=== PATIENT | female | born 1950 | race Caucasian/White ===

== ENCOUNTER → 2017-11-22 | Outpatient (CLI) | payer OTHER ==
[~2017-11-22] MED LIST: AEC81 PO; ATOR40TA69 PO; BISA5TAB12 PO; CALC-38 PO; CLOP75TA14 PO; DILT180C86 PO; ESOM40CA54 PO; HYDR-309 PO; LOSA100T29 PO; METO200T49 PO; MULT-40 PO; OMEP40CA37 PO; POTA-9 PO
[2017-11-22 10:45] LABS: CREATININE 1.7 mg/dL (0.5-1.5); POTASSIUM 3.8 mmol/L (3.5-5.1)
== END | disposition home or self-care (01) ==
LOC: RAH 10:02
PROVIDERS: ATTEND Internal Medicine
DX: I11.9 Hypertensive heart disease without heart failure (principal)
CPT/HCPCS: 36415; 80048

== ENCOUNTER → 2017-11-24 | Outpatient (CLI) | payer OTHER | END | disposition home or self-care (01) | LOC: RAH 09:22 | PROVIDERS: ATTEND Internal Medicine | DX: K59.00 Constipation, unspecified (principal) | CPT/HCPCS: 74018 ==

== ENCOUNTER → 2017-12-23 | Outpatient (CLI) | payer OTHER | END | disposition home or self-care (01) | LOC: RAH 08:58 | PROVIDERS: ATTEND Internal Medicine | DX: N64.4 Mastodynia (principal); R92.2 Inconclusive mammogram | CPT/HCPCS: 76641; 77066 ==